=== PATIENT | male | born 1990 | race Two or more races ===

== ENCOUNTER 2021-03-02 23:57 | Emergency (ER) | payer MEDICAID ==
[~2021-03-02] VITALS: Ht 180.3 cm; Wt 83.9 kg
[2021-03-03 00:41] VITALS: BP 134/84
[2021-03-03] MEDS ORDERED: KETOROLAC TROMETH 60MG/2ML VIAL IM ONE (01:00)
== END 2021-03-03 01:34 | disposition home or self-care (01) ==
LOC: ER 23:57
DX: K02.9 Dental caries, unspecified (principal); K06.1 Gingival enlargement; R68.84 Jaw pain; E11.9 Type 2 diabetes mellitus without complications
CPT/HCPCS: 96372; 99283; J1885

== ENCOUNTER 2021-06-15 17:22 | Emergency (ER) | payer MEDICAID ==
[~2021-06-15] VITALS: Ht 180.3 cm; Wt 83.9 kg
[2021-06-15 18:30] VITALS: BP 118/81
== END 2021-06-15 19:14 | disposition home or self-care (01) ==
LOC: ER 17:22
DX: J03.90 Acute tonsillitis, unspecified (principal); E11.9 Type 2 diabetes mellitus without complications

== ENCOUNTER 2023-03-23 13:57 | Emergency (ER) | payer MEDICAID ==
[~2023-03-23] VITALS: Ht 180.3 cm; Wt 84.5 kg
[2023-03-23 16:58] LABS: COVID19 ANTIGEN SOFIA FIA NEGATIVE (NEGATIVE); Rapid Strep A Screen-Throat Negative
[2023-03-23] MEDS ORDERED: AMOX500T3 PO (18:38)
[2023-03-23] MEDS ORDERED: DexAMETHasone SOD PHOS 10MG/1ML VIAL INJ IM ONE (18:45)
[2023-03-23 18:47] VITALS: BP 115/63; PULSE 81; RESP 14; TEMP 97.7; O2SAT 96
== END 2023-03-23 18:46 | disposition home or self-care (01) ==
LOC: ER 13:57
DX: J02.9 Acute pharyngitis, unspecified (principal); E11.9 Type 2 diabetes mellitus without complications; Z79.2 Long term (current) use of antibiotics; Z20.822 Contact with and (suspected) exposure to COVID-19
CPT/HCPCS: 36415; 87070; 87426; 87880; 96372; 99283; J1100

== ENCOUNTER 2024-01-29 03:30 | Inpatient (IN) | payer MEDICAID, SELFPAY ==
[~2024-01-29] VITALS: Ht 175.3 cm; Wt 83.4 kg
[2024-01-29] VITALS (14 sets, daily range): BP systolic 130–154; BP diastolic 68–86; PULSE 92–110; RESP 12–42; TEMP 97.6–98.3; O2SAT 95–99
[~2024-01-29 03:30] MED LIST: AMOX500T3 PO
[2024-01-29 03:59] LABS: Basophils # (auto) 0 10 ^3/uL (0-0.2); Basophils % (auto) 0.2 % (0.0-2.0); Eosinophils # (auto) 0 10 ^3/uL (0-0.8); Eosinophils % (auto) 0.1 % (0.0-7.0); Hematocrit 47.4 % (41.0-53.0); Hemoglobin 14.7 g/dL (13.5-17.5); Lymphocytes # (auto) 2.1 10 ^3/uL (0.4-5.4); Lymphocytes % (auto) 13.9 % (10.0-50.0); Mean Corpuscular Hemoglobin 30.8 pg (28.0-32.0); Mean Corpuscular Hgb Conc. 31.1 g/dL (32.0-36.0); Mean Corpuscular Volume 99.3 fL (80.0-100.0); Monocytes # (auto) 1.2 10 ^3/uL (0-1.3); Monocytes % (auto) 8.4 % (0.0-12.0); Neutrophils # (auto) 11.5 10 ^3/uL (1.6-8.6); Neutrophils % (auto) 77.4 % (37.0-80.0); Nucleated Red Blood Cells % 0.1 %; Red Blood Cells 4.78 10^6/uL (4.5-5.90); White Blood Cell 14.9 10^3/uL (4.4-10.8)
[2024-01-29] MEDS: SODIUM CHLORIDE 0.9% 1,000 ML IV ONE ×4 (04:03→05:06)
[2024-01-29] MEDS: InsuLIN REG 1unit/0.01ml Soln (100units/ml) IV ONE ×2 (04:05→05:14)
[2024-01-29 04:13] LABS: INR 0.93 (0.9-1.15); Partial Thromboplastin Time 25.7 SEC (24.5-34.5); Prothrombin Time 9.9 sec (9.3-11.8)
[2024-01-29] MEDS: KETOROLAC TROMETH 30 MG/ML 1ML VIAL IV ONE (04:13)
[2024-01-29 04:21] LABS: Alanine Aminotransferase 21 U/L (7-40); Albumin 4.7 g/dL (3.2-4.8); Alkaline Phosphatase 85 U/L (46-116); Anion Gap 33.00001 (5-15); Aspartate Aminotransferase 10 U/L (13-40); BUN/Creatinine Ratio 12.3 (10.0-20.0); Blood Urea Nitrogen 28 mg/dL (9-23); Calcium 11.1 mg/dL (8.7-10.4); Chloride 95 mmol/L (98-107); Magnesium 2.8 mg/dL (1.6-2.6); Potassium 5.1 mmol/L (3.5-5.1); Sodium 138 mmol/L (136-145)
[2024-01-29 04:22] LABS: Bilirubin, Total 0.5 mg/dL (0.2-1.0); Total Protein 7.5 g/dL (5.7-8.2)
[2024-01-29 04:41] LABS: Carbon Dioxide < 10 mmol/L (20-30); Glucose 765 mg/dL (74-106)
[2024-01-29 04:52] LABS: Lipase 323 U/L (12-53)
[2024-01-29] MEDS ORDERED: DEXTROSE (50%) 50ML SYRG IV PRN ×3 (05:00→15:30)
[2024-01-29] MEDS: INSULIN DRIP 100 UNIT/100ML 100 ML IV SCH (05:12)
[2024-01-29] MEDS: metroNIDAZOLE 500MG/100ML 100 ML IV ONE (05:14)
[2024-01-29] MEDS: SODIUM BICARB 8.4% 50Meq/50ml SYR Vial IV ONE (05:14)
[2024-01-29] MEDS: cefTRIAXone 1GM/50ML D5W 50 ML IV ONE (05:14)
[2024-01-29] MEDS ORDERED: NITROGLYCERIN 0.4 MG SL TAB SL PRN (06:30)
[2024-01-29] MEDS ORDERED: MORPHINE SULFATE INJ 2 MG/ml SYRG IV PRN (06:30)
[2024-01-29] MEDS: ACCU-CHEK COMFORT CURVE STRIP VI SCH ×2 (06:45→18:28)
[2024-01-29] MEDS: SODIUM BICARB 50mEq/50ml Vial 100 ML in SOD CHL 0.45% 1,000 ML IV ONE (07:48)
[2024-01-29 08:22] LABS: Anion Gap 29 (5-15); Carbon Dioxide 11 mmol/L (20-30); Chloride 105 mmol/L (98-107); Potassium 3.8 mmol/L (3.5-5.1); Sodium 145 mmol/L (136-145)
[2024-01-29 08:28] LABS: BUN/Creatinine Ratio 9.6 (10.0-20.0); Blood Urea Nitrogen 19 mg/dL (9-23)
[2024-01-29 08:30] LABS: Glucose 506 mg/dL (74-106)
[2024-01-29] MEDS ORDERED: SODIUM CHLORIDE 0.9% 1,000 ML IV SCH (10:45)
[2024-01-29] MEDS: ONDANSETRON HCL 4 MG/2 ML VIAL IV PRN (11:02)
[2024-01-29] MEDS: MORPHINE SULFATE INJ 2 MG/ml SYRG IV PRN (11:04)
[2024-01-29] MEDS: INSULIN LANTUS (GLARGINE) 1 /0.01ml (100units/ml) SC SCH (11:19)
[2024-01-29] MEDS ORDERED: INSULIN DRIP 100 UNIT/100ML 100 ML IV SCH (11:30)
[2024-01-29 13:34] LABS: Anion Gap 9 (5-15); Chloride 110 mmol/L (98-107); Potassium 3.6 mmol/L (3.5-5.1)
[2024-01-29 13:35] LABS: Calcium 10.1 mg/dL (8.7-10.4)
[2024-01-29 13:40] LABS: BUN/Creatinine Ratio 16.4 (10.0-20.0); Blood Urea Nitrogen 24 mg/dL (9-23); Carbon Dioxide 32 mmol/L (20-30); Glucose 233 mg/dL (74-106); Sodium 151 mmol/L (136-145)
[2024-01-29] MEDS: SOD CHL 0.45% 1,000 ML IV SCH (15:51)
[2024-01-29] MEDS ORDERED: INSU100I26 SC (18:26)
[2024-01-29] MEDS ORDERED: METF-370 PO (18:26)
[2024-01-29] MEDS: InsuLIN REG 1unit/0.01ml Soln (100units/ml) SC SCH ×2 (18:30→22:21)
[2024-01-29 18:51] LABS: Chloride 110 mmol/L (98-107); Potassium 3.7 mmol/L (3.5-5.1); Sodium 150 mmol/L (136-145)
[2024-01-29 18:52] LABS: Anion Gap 10 (5-15); Calcium 9.7 mg/dL (8.7-10.4); Carbon Dioxide 30 mmol/L (20-30)
[2024-01-29 18:57] LABS: BUN/Creatinine Ratio 18.1 (10.0-20.0); Blood Urea Nitrogen 26 mg/dL (9-23); Glucose 216 mg/dL (74-106)
[2024-01-30] VITALS (14 sets, daily range): BP systolic 109–165; BP diastolic 59–84; PULSE 79–101; RESP 10–21; TEMP 98.1–99.2; O2SAT 16–98
[2024-01-30 01:07] LABS: Chloride 108 mmol/L (98-107); Potassium 3.5 mmol/L (3.5-5.1); Sodium 147 mmol/L (136-145)
[2024-01-30 01:08] LABS: Anion Gap 12 (5-15); Carbon Dioxide 27 mmol/L (20-30)
[2024-01-30 01:13] LABS: Glucose 228 mg/dL (74-106)
[2024-01-30 01:14] LABS: BUN/Creatinine Ratio 17.9 (10.0-20.0); Blood Urea Nitrogen 24 mg/dL (9-23)
[2024-01-30 04:51] LABS: Basophils # (auto) 0 10 ^3/uL (0-0.2); Basophils % (auto) 0.1 % (0.0-2.0); Eosinophils # (auto) 0 10 ^3/uL (0-0.8); Hematocrit 35.6 % (41.0-53.0); Hemoglobin 12.2 g/dL (13.5-17.5); Lymphocytes # (auto) 1.5 10 ^3/uL (0.4-5.4); Lymphocytes % (auto) 10.9 % (10.0-50.0); Mean Corpuscular Hemoglobin 30.8 pg (28.0-32.0); Mean Corpuscular Hgb Conc. 34.2 g/dL (32.0-36.0); Mean Corpuscular Volume 89.9 fL (80.0-100.0); Monocytes # (auto) 1.3 10 ^3/uL (0-1.3); Monocytes % (auto) 9.5 % (0.0-12.0); Neutrophils # (auto) 10.7 10 ^3/uL (1.6-8.6); Neutrophils % (auto) 79.5 % (37.0-80.0); Nucleated Red Blood Cells % 0.1 %; Red Blood Cells 3.96 10^6/uL (4.5-5.90); Red Cell Distribution Width 12.8 % (11.8-14.3); White Blood Cell 13.4 10^3/uL (4.4-10.8)
[2024-01-30 05:11] LABS: Alanine Aminotransferase 13 U/L (7-40); Albumin 3.4 g/dL (3.2-4.8); Alkaline Phosphatase 56 U/L (46-116); Anion Gap 6 (5-15); Aspartate Aminotransferase 10 U/L (13-40); BUN/Creatinine Ratio 22.7 (10.0-20.0); Bilirubin, Total 0.9 mg/dL (0.2-1.0); Blood Urea Nitrogen 30 mg/dL (9-23); Calcium 8.7 mg/dL (8.7-10.4); Carbon Dioxide 29 mmol/L (20-30); Chloride 109 mmol/L (98-107); Glucose 262 mg/dL (74-106); Potassium 3.4 mmol/L (3.5-5.1); Sodium 144 mmol/L (136-145); Total Protein 5.6 g/dL (5.7-8.2)
[2024-01-30] MEDS: POTASSIUM EFFERVESENT TAB 25 MEQ PO ONE (09:44)
[2024-01-30] MEDS: SOD CHL 0.45% WITH 20MEQ KCL 1,000 ML IV SCH (09:44)
[2024-01-30] MEDS: INSULIN LANTUS (GLARGINE) 1 /0.01ml (100units/ml) SC SCH (09:57)
[2024-01-30] MEDS: THROAT LOZENGES(CEPASTAT) MT PRN (10:06)
[2024-01-31 01:00] VITALS: BP 148/80; PULSE 79; RESP 21; TEMP 98.2; O2SAT 97
[2024-01-31 05:00] VITALS: BP 120/71; PULSE 76; RESP 20; TEMP 97.9; O2SAT 97
[2024-01-31 06:40] LABS: Basophils # (auto) 0 10 ^3/uL (0-0.2); Basophils % (auto) 0.2 % (0.0-2.0); Eosinophils # (auto) 0.1 10 ^3/uL (0-0.8); Eosinophils % (auto) 0.6 % (0.0-7.0); Hematocrit 32.7 % (41.0-53.0); Hemoglobin 11.2 g/dL (13.5-17.5); Lymphocytes # (auto) 2.4 10 ^3/uL (0.4-5.4); Lymphocytes % (auto) 27.9 % (10.0-50.0); Mean Corpuscular Hemoglobin 30.9 pg (28.0-32.0); Mean Corpuscular Hgb Conc. 34.4 g/dL (32.0-36.0); Mean Corpuscular Volume 89.9 fL (80.0-100.0); Monocytes % (auto) 11.4 % (0.0-12.0); Neutrophils # (auto) 5.2 10 ^3/uL (1.6-8.6); Neutrophils % (auto) 59.9 % (37.0-80.0); Nucleated Red Blood Cells % 0.1 %; Red Blood Cells 3.64 10^6/uL (4.5-5.90); Red Cell Distribution Width 12.5 % (11.8-14.3); White Blood Cell 8.7 10^3/uL (4.4-10.8)
[2024-01-31 06:50] LABS: Anion Gap 4 (5-15); Carbon Dioxide 30 mmol/L (20-30); Chloride 105 mmol/L (98-107); Sodium 139 mmol/L (136-145)
[2024-01-31 06:51] LABS: Calcium 8.3 mg/dL (8.7-10.4)
[2024-01-31 06:56] LABS: BUN/Creatinine Ratio 23.5 (10.0-20.0); Blood Urea Nitrogen 16 mg/dL (9-23); Glucose 199 mg/dL (74-106)
[2024-01-31 09:44] VITALS: BP 117/64; PULSE 81; RESP 16; TEMP 98; O2SAT 96
[2024-01-31 13:14] VITALS: BP 138/82; PULSE 77; RESP 16; TEMP 98.2; O2SAT 98
[2024-01-31 16:53] VITALS: BP 142/86; PULSE 80; RESP 16; TEMP 98.1; O2SAT 98
[2024-01-31 17:58] LABS: Urine Bacteria None Seen /hpf (None Seen)
[2024-01-31 18:10] LABS: Urine Blood TRACE /uL (Negative); Urine Budding Yeast OCCASIONAL /hpf (None Seen); Urine Clarity Clear (Clear); Urine Color Light-Yellow (Yellow); Urine Protein, UAD Negative (Negative); Urine Specific Gravity 1.022 (1.001-1.035); Urine Urobilinogen Normal (Negative); Urine WBC 1 /hpf (0 - 3)
[2024-01-31] MEDS: INSULIN LANTUS (GLARGINE) 1 /0.01ml (100units/ml) SC SCH (20:00)
[2024-01-31 21:00] VITALS: BP 127/74; PULSE 87; RESP 20; TEMP 98.1; O2SAT 98
[2024-01-31] MEDS: POTASSIUM CHL 20 Meq TABLET PO ONE (21:37)
[2024-02-01 01:00] VITALS: BP 133/77; PULSE 68; RESP 18; TEMP 97.8; O2SAT 98
[2024-02-01 05:00] VITALS: BP 131/78; PULSE 78; RESP 18; TEMP 97.9; O2SAT 97
[2024-02-01 05:57] LABS: Basophils # (auto) 0 10 ^3/uL (0-0.2); Basophils % (auto) 0.5 % (0.0-2.0); Eosinophils # (auto) 0.1 10 ^3/uL (0-0.8); Eosinophils % (auto) 1.9 % (0.0-7.0); Hematocrit 34.4 % (41.0-53.0); Hemoglobin 11.5 g/dL (13.5-17.5); Lymphocytes # (auto) 2.8 10 ^3/uL (0.4-5.4); Lymphocytes % (auto) 35.5 % (10.0-50.0); Mean Corpuscular Hemoglobin 30.6 pg (28.0-32.0); Mean Corpuscular Hgb Conc. 33.6 g/dL (32.0-36.0); Mean Corpuscular Volume 91.3 fL (80.0-100.0); Monocytes # (auto) 0.8 10 ^3/uL (0-1.3); Monocytes % (auto) 10.7 % (0.0-12.0); Neutrophils # (auto) 4.1 10 ^3/uL (1.6-8.6); Neutrophils % (auto) 51.4 % (37.0-80.0); Nucleated Red Blood Cells % 0.1 %; Red Blood Cells 3.77 10^6/uL (4.5-5.90); Red Cell Distribution Width 12.4 % (11.8-14.3); White Blood Cell 7.9 10^3/uL (4.4-10.8)
[2024-02-01 06:12] LABS: Alanine Aminotransferase 14 U/L (7-40); Albumin 3.3 g/dL (3.2-4.8); Alkaline Phosphatase 51 U/L (46-116); Anion Gap 5 (5-15); Aspartate Aminotransferase 17 U/L (13-40); BUN/Creatinine Ratio 13.5 (10.0-20.0); Bilirubin, Total 0.6 mg/dL (0.2-1.0); Blood Urea Nitrogen 7 mg/dL (9-23); Calcium 8.8 mg/dL (8.7-10.4); Carbon Dioxide 27 mmol/L (20-30); Chloride 109 mmol/L (98-107); Magnesium 2.2 mg/dL (1.6-2.6); Potassium 3.6 mmol/L (3.5-5.1); Sodium 141 mmol/L (136-145); Total Protein 5.5 g/dL (5.7-8.2)
[2024-02-01 06:22] LABS: Glucose 61 mg/dL (74-106)
[2024-02-01 08:20] VITALS: PULSE 74; RESP 18; O2SAT 97
[2024-02-01 09:00] VITALS: BP 130/76; PULSE 74; RESP 18; TEMP 98; O2SAT 97
[2024-02-01 13:00] VITALS: BP 129/74; PULSE 73; RESP 18; TEMP 98.2; O2SAT 98
[2024-02-01 17:00] VITALS: BP 134/72; PULSE 76; RESP 19; TEMP 98.1; O2SAT 96
[2024-02-01] MEDS ORDERED: INSULIN LANTUS (GLARGINE) 1 /0.01ml (100units/ml) SC SCH (20:00)
== END 2024-02-01 19:52 | disposition left against medical advice (07) | DRG 637 ==
LOC: ER 03:36 → TELE 06:31 → ICU CENTRL 10:44 → DOU IN ICU 13:45 → WEST WING 01-30 10:43
PROVIDERS: ADMIT Nurse Practitioner; ATTEND Nurse Practitioner Acute Care
DX: E11.10 Type 2 diabetes mellitus with ketoacidosis without coma (principal); N17.0 Acute kidney failure with tubular necrosis; R65.10 Systemic inflammatory response syndrome (SIRS) of non-infectious origin without acute organ dysfunction; E86.0 Dehydration; E87.6 Hypokalemia; Z53.29 Procedure and treatment not carried out because of patient's decision for other reasons; Z79.4 Long term (current) use of insulin; Z91.199 Patient's noncompliance with other medical treatment and regimen due to unspecified reason
CPT/HCPCS: 36415; 36600; 71045; 74176; 80048; 80053; 81001; 82010; 82805; 82962; 83036; 83690; 83735; 84484; 85025; 85610; 85730; 87081; 96361; 96365; 96368; 96375; 96376; G0378; J1815; J1885; J2405; J3490